=== PATIENT | female | born 1980 | race Caucasian/White ===

== ENCOUNTER 2021-04-02 16:30 | Emergency (ER) | payer OTHER ==
[~2021-04-02] VITALS: Ht 170.2 cm; Wt 77.2 kg
--- NOTE | 2021-04-02 18:07 | EKG ---
[address] [address] Test Date: 2021-04-02 Test Time: 17:50:57 Pat Name: MCKENZIE FRANKLIN Department: Room: Gender: F Coding Educator: STONE : 1980 Requested By: MEGHAN WILLOUGHBY Order Number: [id number] Reading MD: Measurements Intervals [place] Rate: 122 P: 47 MO: 132 QRS: 56 QRSD: 88 T: 31 QT: 314 QTc: 449 Interpretive Statements SINUS TACHYCARDIA OTHERWISE NORMAL ECG RI6.02 No previous ECG available for comparison
[2021-04-02] MEDS ORDERED: IV NORMAL SALINE 1,000ML 1,000 ML IV SCH (18:15)
--- NOTE | 2021-04-02 18:55 | PHYS DOC ---
Past History Additional Past Medical Histor: attention deficit (MIKE HAMILTON APRN) Past Surgical History: Other Additional Past Surgical Histo: wisdom teeth (MIKE HAMILTON APRN) Alcohol Use: Rarely (MIKE HAMILTON APRN) General Adult EDM: Chief Complaint: RAPID HEART RATE HPI: HPI: Patient is a 40-year-old female who presents to the emergency department today for rapid heart rate. Patient reports that she was laying in bed about to read about when she started feeling her heart racing and palpitations. Patient reports that she has never had this in the past. 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 Patient denies any dizziness, chest pain, shortness of breath, nausea, vomiting, cough, fever, alcohol use, drug use, supplemental use, [id number] medication use. She reports that she has never had rapid heart rate or palpitations in the past. She states that she has distant history of ADHD and takes Adderall but has not taken any today or yesterday. She reports that prior to the rapid heart rate she was not feeling anxious but now she is thinking about it and is slightly anxious. (MIKE HAMILTON APRN) Review of Systems: Review of Systems: Constitutional: negative unless reported in HPI Eyes: negative unless reported in HPI HENT: negative unless reported in HPI Respiratory: negative unless reported in HPI Cardiovascular: negative unless reported in HPI GI: negative unless reported in HPI : negative unless reported in HPI Musculoskeletal: negative unless reported in HPI Integument: negative unless reported in HPI Neurologic: negative unless reported in HPI Endocrine: negative unless reported in HPI Lymphatic: negative unless reported in HPI Psychiatric: negative unless reported in HPI (MIKE HAMILTON APRN) Current Medications: Current Meds: Current Medications Medications (Trade) Dose Ordered Sig/Shelly Start Time Stop Time Status Last Admin Dose Admin Sodium Chloride 1,000 ml @ 1,000 mls/hr Q1H 04/02/21 18:15 04/02/21 19:14 04/02/21 18:15 1,000 MLS/HR (MIKE HAMILTON APRN) Allergies: Allergies: Allergies Coded Allergies Type Severity Reaction Last Updated Verified No Known Drug Allergies 04/02/21 No (MIKE HAMILTON APRN) Physical Exam: PE: Constitutional: Well developed, well nourished, no acute distress, non-toxic appearance. [] HENT: Normocephalic, atraumatic, bilateral external ears normal, oropharynx moist, no oral exudates, nose normal. [] Eyes: PERRL, EOMI, conjunctiva normal, no discharge. [] Neck: Normal range of motion, no tenderness, supple, no stridor. [] Cardiovascular:Heart rate tachycardic rhythm, no murmur [] Lungs & Thorax: Bilateral breath sounds clear to auscultation [] Abdomen: Bowel sounds normal, soft, no tenderness, no masses, no pulsatile masses. [] Skin: Warm, dry, no erythema, no rash. [] Back: Normal range of motion Extremities: No tenderness, no cyanosis, no clubbing, ROM intact, no edema. [] Neurologic: Alert and oriented X 3, normal motor function, normal sensory function, no focal deficits noted. [] Psychologic: Affect normal, judgement normal, mood normal. [] (MIKE HAMILTON APRN) Current Patient Data: Labs: Laboratory Tests Test 04/02/21 18:38 04/02/21 19:15 White Blood Count 11.5 x10^3/uL Red Blood Count 4.95 x10^6/uL Hemoglobin 14.4 g/dL Hematocrit 42.2 % Mean Corpuscular Volume 85 fL Mean Corpuscular Hemoglobin 29 pg Mean Corpuscular Hemoglobin Concent 34 g/dL Red Cell Distribution Width 12.2 % Platelet Count 327 x10^3/uL Neutrophils (%) (Auto) 68 % Lymphocytes (%) (Auto) 23 % Monocytes (%) (Auto) 7 % Eosinophils (%) (Auto) 1 % Basophils (%) (Auto) 1 % Neutrophils # (Auto) 7.7 x10^3uL Lymphocytes # (Auto) 2.6 x10^3/uL Monocytes # (Auto) 0.8 x10^3/uL Eosinophils # (Auto) 0.1 x10^3/uL Basophils # (Auto) 0.1 x10^3/uL Sodium Level 141 mmol/L Potassium Level 3.8 mmol/L Chloride Level 103 mmol/L Carbon Dioxide Level 26 mmol/L Anion Gap 12 Blood Urea Nitrogen 14 mg/dL Creatinine 0.8 mg/dL Estimated GFR (Cockcroft-Gault) 79.0 BUN/Creatinine Ratio 18 Glucose Level 89 mg/dL Calcium Level 8.8 mg/dL Total Bilirubin 0.3 mg/dL Aspartate Amino Transf (AST/SGOT) 23 U/L Alanine Aminotransferase (ALT/SGPT) 47 U/L Alkaline Phosphatase 89 U/L Troponin I High Sensitivity 12 ng/L Total Protein 7.5 g/dL Albumin 4.2 g/dL Albumin/Globulin Ratio 1.3 Urine Collection Type Clean catch Urine Color Yellow Urine Clarity Clear Urine pH 6.5 Urine Specific [place] 1.020 Urine Protein Neg Urine Glucose (UA) Neg mg/dL Urine Ketones (Stick) Neg mg/dL Urine Blood Trace Urine Nitrite Neg Urine Bilirubin Neg Urine Urobilinogen Dipstick 0.2 mg/dL Urine Leukocyte Esterase Neg Urine RBC Occ /HPF Urine WBC 0 /HPF Urine Squamous Epithelial Cells Few /LPF Urine Bacteria 0 /HPF Urine Opiates Screen Neg Urine Methadone Screen Neg Urine Barbiturates Neg Urine Phencyclidine Screen Neg Urine Amphetamine/Methamphetamine Neg Urine Benzodiazepines Screen Neg Urine Cocaine Screen Neg Urine Cannabinoids Screen Neg Urine Ethyl Alcohol Neg Current Medications Medications (Trade) Dose Ordered Sig/Shelly Route PRN Reason Start Time Stop Time Status Last Admin Dose Admin Sodium Chloride 1,000 ml @ 1,000 mls/hr Q1H IV 04/02/21 18:15 04/02/21 19:14 DC 04/02/21 18:15 Vital Signs: Vital Signs Date Time Temp Pulse Resp B/P (MAP) Pulse Ox O2 Delivery O2 Flow Rate FiO2 04/02/21 17:48 99.0 135 20 145/90 (108) 99 Room Air (MIKE HAMILTON TELETYPESETTER MONITOR) EKG: EKG: EKG performed by ER staff at 1750 shows sinus tachycardia with a rate of 122, QTC of 449, no STEMI read by Dr. Willoughby at 1800. [] (MIKE HAMILTON TELETYPESETTER MONITOR) Radiology/Procedures: Radiology/Procedures: []PROCEDURE: PORTABLE CHEST 1V EXAM: XR CHEST 1V 04/02/2021 6:28 PM CLINICAL INDICATION: Tachycardia COMPARISON: None TECHNIQUE: AP view of the chest FINDINGS: The heart and mediastinum are normal. Lungs are well-expanded and clear. No consolidation, pleural effusion, or pneumothorax. Pulmonary vascularity is normal. The thoracic skeleton is intact. IMPRESSION: Normal chest radiograph. Electronically signed by: Patti Connor MD (04/02/2021 7:33 PM) [id number] DICTATED AND SIGNED BY: PATTI CONNOR MD DATE: 04/02/211932 CC: MIKE HAMILTON APRN; CATHERINE BUENO MD ~MTH0 0 (MIKE HAMILTON APRN) Heart Score: C/O Chest Pain: No Risk Factors: Risk Factors: DM, Current or recent (<one month) smoker, HTN, HLP, family history of CAD, obesity. Risk Scores: Score 0 - 3: 2.5% MACE over next 6 weeks - Discharge Home Score 4 - 6: 20.3% MACE over next 6 weeks - Admit for Clinical Observation Score 7 - 10: 72.7% MACE over next 6 weeks - Early Invasive Strategies (MIKE HAMILTON APRN) Course & Med Decision Making: Course & Med Decision Making Pertinent Labs and Imaging studies reviewed. (See chart for details) [] Patient presents to the emergency department for rapid heart rate. Patient denies any chest pain or shortness of breath, leg swelling or pain. Work-up in the ER consisted of blood work, urinalysis and EKG, chest x-ray. Blood work was unremarkable. Negative urinalysis, negative chest x-ray. Following treatment in the emergency department with IV fluids, vital signs were stable heart rate has improved to 98 bpm. Patient was given cardiology referral. Patient advised to increase fluids as dehydration is a common cause for tachycardia. I discussed with patient all findings and diagnostic testing as well as the need to follow-up with PCP for further evaluation and treatment or return to the ER if any new or worsening symptoms. Strict return precautions were also discussed at length. Patient voiced understanding and agreement with the plan. Patient is hemodynamically stable at the time of disposition. (MIKE HAMILTON APRN) Dragon Disclaimer: Dragon Disclaimer: This electronic medical record was generated, in whole or in part, using a voice recognition dictation system. (MIKE HAMILTON APRN) Departure Departure: Impression: Primary Impression: Tachycardia Disposition: HOME / SELF CARE / HOMELESS Condition: GOOD Referrals: CATHERINE BUENO MD (PCP) ADRIAN RIVERA MD Patient Instructions: Nonspecific Tachycardia Additional Instructions: You were seen in the emergency department today for tachycardia. Your blood work, urinalysis, EKG and chest x-ray showed no acute findings. Your heart rate did improve after IV fluids, it is possible that your tachycardia may be attributed to dehydration therefore, it is important to increase your fluids. At this point, we cannot find an emergent cause for your tachycardia. It is important for you to follow-up with cardiology regarding this and a compressor operator adjuster was attached to this discharge paperwork. Please follow-up with them as soon as possible, I would contact them on Sunday morning or your primary care provider to set up a follow-up appointment. Please return to the emergency department if you develop tachycardia, palpitations, chest pain, shortness of breath, dizziness, syncope, intractable nausea or vomiting, high fevers refractory to treatment or any new or worsening concerns. Attending Signature Attending Signature I have reviewed the PA/SECURITY PROGRAM MANAGER's note and plan of care. I was available for consultation as needed during the patient's visit in the emergency department. I agree with the clinical impression, plan, and disposition. (MEGHAN WILLOUGHBY DO) MIKE HAMILTON APRN Apr 02, 2021 18:55 MEGHAN WILLOUGHBY DO Apr 03, 2021 01:28
[2021-04-02 19:08] LABS: BASO # 0.1 x10^3/uL (0.0-0.2); BASO % 1 % (0-3); EOS # 0.1 x10^3/uL (0.0-0.7); EOS % 1 % (0-3); HEMATOCRIT 42.2 % (36.0-47.0); HEMOGLOBIN 14.4 g/dL (12.0-15.5); LYMPH # 2.6 x10^3/uL (1.0-4.8); LYMPH % 23 % (24-48); MEAN CORPUSCULAR HEMOGLOBIN 29 pg (25-35); MEAN CORPUSCULAR HGB CONC 34 g/dL (31-37); MEAN CORPUSCULAR VOLUME 85 fL (79-100); MONO # 0.8 x10^3/uL (0.0-1.1); MONO % 7 % (0-9); NEUT # 7.7 x10^3uL (1.8-7.7); NEUT % 68 % (31-73); PLATELET COUNT 327 x10^3/uL (140-400); RED BLOOD COUNT 4.95 x10^6/uL (3.50-5.40); RED CELL DISTRIBUTION WIDTH 12.2 % (11.5-14.5); WHITE BLOOD COUNT 11.5 x10^3/uL (4.0-11.0)
[2021-04-02 19:19] LABS: CALCIUM 8.8 mg/dL (8.5-10.1); CREATININE 0.8 mg/dL (0.6-1.0); POTASSIUM 3.8 mmol/L (3.5-5.1)
[2021-04-02 19:32] LABS: ALBUMIN 4.2 g/dL (3.4-5.0); ALBUMIN/GLOBULIN RATIO 1.3 (1.0-1.7); TOTAL BILIRUBIN 0.3 mg/dL (0.2-1.0); TOTAL PROTEIN 7.5 g/dL (6.4-8.2)
--- NOTE | 2021-04-02 19:36 | RAD ---
EXAM: XR CHEST 1V 04/02/2021 6:28 PM CLINICAL INDICATION: Tachycardia COMPARISON: None TECHNIQUE: AP view of the chest FINDINGS: The heart and mediastinum are normal. Lungs are well-expanded and clear. No consolidatio n, pleural effusion, or pneumothorax. Pulmonary vascularity is normal. The thoracic skeleton is int act. IMPRESSION: Normal chest radiograph. Electronically signed by: Patti Connor MD (04/02/2021 7:33 PM) [id number]
[2021-04-02 19:47] LABS: BARBITURATES NEG (NEG); BENZODIAZEPINES NEG (NEG); CANNABINOIDS NEG (NEG); COCAINE NEG (NEG); METHADONE NEG (NEG); OPIATES NEG (NEG); PHENCYCLIDINE NEG (NEG)
[2021-04-02 19:48] LABS: AMPHETAMINE/METHAMPHETAMINE NEG (NEG)
[2021-04-02 19:53] LABS: BACTERIA,URINE 0 /HPF (0-FEW); BILIRUBIN,URINE NEG (NEG); CLARITY,URINE CLEAR; COLOR,URINE YELLOW; GLUCOSE,URINE NEG (NEG); NITRITE,URINE NEG (NEG); RBC,URINE OCC /HPF (0-2); SQUAMOUS EPITHELIAL CELL,UR FEW /LPF; UROBILINOGEN,URINE 0.2 mg/dL (0.2 mg/dL); WBC,URINE 0 /HPF (0-4)
[2021-04-02 20:10] VITALS: BP 129/95
== END 2021-04-02 20:18 | disposition home or self-care (01) ==
LOC: ER 16:30
DX: R00.0 Tachycardia, unspecified (principal); R00.2 Palpitations
CPT/HCPCS: 36415; 71045; 80053; 80307; 81001; 84484; 85025; 93005; 96360; 99285; J7030